=== PATIENT | male | born 1985 | race African-American/Black ===

== ENCOUNTER 2020-02-03 17:49 | Emergency (ER) | payer OTHER ==
[~2020-02-03] VITALS: Ht 190.5 cm; Wt 90.7 kg
[2020-02-03] MEDS ORDERED: NAPROSYN500 MG PO (19:21)
[2020-02-03 19:43] VITALS: BP 145/61
== END 2020-02-03 19:46 | disposition home or self-care (01) ==
LOC: ER 17:49
DX: S60.221A Contusion of right hand, initial encounter (principal); S00.81XA Abrasion of other part of head, initial encounter; W23.0XXA Caught, crushed, jammed, or pinched between moving objects, initial encounter; Y93.89 Activity, other specified; Y92.89 Other specified places as the place of occurrence of the external cause; Y99.0 Civilian activity done for income or pay